=== PATIENT | male | born 2000 | race Caucasian/White ===

== ENCOUNTER 2024-03-14 07:23 | Emergency (ER) | payer OTHER, SELFPAY ==
[2024-03-14 07:31] VITALS: BP 132/81; PULSE 64; RESP 18; TEMP 36.6; O2SAT 97; BMI 21.9
--- NOTE | 2024-03-14 07:35 | CT_ITS ---
WS: [id number] CT ABDOMEN AND PELVIS WITH CONTRAST HISTORY: upper abdominal pain TECHNIQUE: Imaging performed of the abdomen and pelvis with IV contrast. Single phase imaging of the abdomen. Coronal and sagittal reformats are submitted. All CT scans at [facility] use at [address] one of these dose optimization techniques: automated exposure control; mA and/or kV adjustment per patient size (includes targeted exams where dose is matched to clinical indication); or iterative re construction. IV CONTRAST: Omnipaque 350; 100 mL IV. Oral contrast: No DLP: 345.08 mGy.cm COMPARISON: None available. Lower thorax: Lung bases are clear. Heart is normal size. No hiatal hernia. Liver/biliary system: Normal size with no intrahepatic dilatation. Gallbladder: Normal. No gallstones or wall thickening. No pericholecystic fluid. Pancreas: Normal size pancreas and pancreatic duct. No adjacent inflammation. Spleen: Normal size spleen. No mass or infarct. Adrenal glands: Normal. Right kidney: Normal. Left kidney: Normal. Aorta: Normal. Lymphadenopathy: Numerous small hyperemic lymph nodes in the central mesentery and RIGHT lower quadra nt with the largest measuring up to 10 mm in short axis diameter. Free fluid: None. GI tract: Unremarkable. Normal appendix. Abdominal wall: Unremarkable abdominal wall. No hernia. Pelvis: No free fluid or adenopathy within the pelvis. Bones: Unremarkable. CT/CT abdomen pelvis w con* [id number] IMPRESSION: 1. No GI tract obstruction. 2. Normal appendix. 3. Numerous small hyperemic lymph nodes in the central mesentery and RIGHT low er quadrant. Most consistent with mesenteric adenitis.
--- NOTE | 2024-03-14 07:35 | ED_ITS ---
HPI - Abdominal Pain 2 General: Chief Complaint: Abdominal Pain Stated Complaint: abd pain Time Seen by Provider: 03/14/24 07:30 History of Present Illness: 23-year-old man who presents the emergen cy room with abdominal pain. He says it has been fairly severe for about 5 days now. He describes intermittent cramping in his mid upper abdomen. He had some nausea but no vomiting. He has had some intermittent diarrhea. He says sometimes movement makes it worse. He has been taking omeprazole for some time for stomach acid he says. He has been being treated at a local clinic for possible irritable bowel syndrome for a couple of months. No fevers. He says he does have concern for his gallbladder because all of his family has had their gallbladder out. He is not currently having any pain. Review of Systems 2 Narrative: Constitutional symptoms: Negative except as documented in HPI. Skin symptoms: Negative except as documented in HPI. Eye symptoms: Negative except as documented in HPI. ENMT symptoms: Negative except as documented in HPI. Respiratory symptoms: Negative except as documented in HPI. Cardiovascular symptoms: Negative except as documented in HPI. Gastrointestinal symptoms: Negative except as documented in HPI. Genitourinary symptoms: Negative except as documented in HPI. Musculoskeletal symptoms: Negative except as documented in HPI. Neurologic symptoms: Negative except as documented in HPI. Psychiatric symptoms: Negative except as documented in HPI. Endocrine symptoms: Negative except as documented in HPI. Physical Exam 2 Narrative: EXAM NARRATIVE: General: Alert, no acute distress. Skin: Warm, dry. Head: Normocephalic, atraumatic. Neck: Supple, trachea midline. Eye: Extraocular movements are intact. Ears, nose, mouth and throat: mucosa moist. Cardiovascular: Regular, Normal peripheral perfusion. Respiratory: Lungs are clear to auscultation, respirations are non-labored, breath sounds are equal, Symmetrical chest wall expansion. Gastrointestinal: Soft, Nontender, Non distended Musculoskeletal: Normal ROM, no deformity. Neurological: Alert and oriented, No focal neurological deficit observed. Psychiatric: Cooperative, appropriate mood & affect. Course 2 Vital Signs: Vital signs: Vital Signs Temperature 97.8 F 03/14/24 07:31 Pulse Rate 64 03/14/24 07:31 Respiratory Rate 18 03/14/24 07:31 Blood Pressure 134/82 03/14/24 09:05 Pulse Oximetry 99 03/14/24 09:05 Oxygen Delivery Me thod Room Air 03/14/24 07:31 MDM - Abdominal Pain Medical Decision Making Medical decision making: Differential diagnosis including but not limited to and based on the above HPI, review of systems and physical exam: Concern for pancreatitis, gastritis, gallbladder disease, inflammatory bowel. Lab work and CT were ordered to evaluate. Orders placed to evaluate differential diagnosis based on the above differential, HPI and physical exam Lab Review: Laboratory results were reviewed and interpreted by myself the emergency room physician. Lab work shows mild leukocytosis. No anemia. No renal failure. Liver enzymes and lipase are normal. CT of the abdomen pelvis with contrast: No appendicitis. No cholecystitis. No evidence of pancreatitis. No obstructions. Patient does have some small hyperemic lymph nodes that could be consistent with mesenteric adenitis. However patient's presentation is not consistent with this. He is complaining of upper abdominal pain not right lower quadrant pain. This was reviewed and interpreted by myself the emergency room physician. I also reviewed the radiology report. I reviewed the patient's medical record. Reexamination: Patient remained stable. No increased work of breathing. He is having no pain here today. Discussed the findings with him and he expresses understanding. Assessment and plan: Abdominal pain - Discharged home - Discussed findings and plan with patient. Answered any questions. - All laboratory values were reviewed and interpreted personally by myself, the ER physician - All imaging was reviewed and interpreted personally by myself, the ER physician. - Evaluation and treatment of this problem were appropriate in the emergency setting Lab Data 03/14/24 07:45 03/14/24 07:45 Labs/Radiology: Radiology Impressions Abdomen/Pelvis CT 03/14/24 07:35 IMPRESSION: 1. No GI tract obstruction. 2. Normal appendix. 3. Numerous small hyperemic lymph nodes in the central mesentery and RIGHT lower quadrant. Most consistent with mesenteric adenitis. Laboratory Results WBC 12.10 10^3/uL (3.29-11.43) H 03/14/24 07:45 RBC 5.03 10^6/uL (3.85-5.65) 03/14/24 07:45 Hgb 15.10 g/dL (11.27-16.99) 03/14/24 07:45 Hct 43.9 % (37-53) 03/14/24 07:45 MCV 87.3 fl (82-101) 03/14/24 07:45 MCH 30.0 pg (27-33) 03/14/24 07:45 MCHC 34.4 g/dL (30-55) 03/14/24 07:45 RDW 12.0 % (12.1-15.1) L 03/14/24 07:45 Plt Count 273 10^3/cmm (157-399) 03/14/24 07:45 MPV 9.5 fL (7.4-10.4) 03/14/24 07:45 Neut % (Auto) 71.1 % 03/14/24 07:45 Lymph % (Auto) 15.4 % 03/14/24 07:45 [place] % (Auto) 9.8 % 03/14/24 07:45 Eos % (Auto) 2.4 % 03/14/24 07:45 Baso % (Auto) 0.8 % 03/14/24 07:45 Neut # (Auto) 8.60 10^3/uL (1.8-7.7) H 03/14/24 07:45 Lymph # (Auto) 1.9 10^3/uL (0.8-4.8) 03/14/24 07:45 [place] # (Auto) 1.2 10^3/uL (0.2-0.9) H 03/14/24 07:45 Eos # (Auto) 0.3 10^3/uL (0.0-0.8) 03/14/24 07:45 Baso # (Auto) 0.1 10^3/uL (0.0-0.1) 03/14/24 07:45 Nucleated RBC % (auto) 0 % 03/14/24 07:45 Nucleated RBCs # 0.0 /100WBC 03/14/24 07:45 Sodium 140 mmol/L (136-145) 03/14/24 07:45 Potassium 4.3 mmol/L (3.5-5.1) 03/14/24 07:45 Chloride 105 mmol/L (98-107) 03/14/24 07:45 Carbon Dioxide 22 mmol/L (22-29) 03/14/24 07:45 Anion Gap 17.3 (5-19) 03/14/24 07:45 BUN 18 mg/dL (6-20) 03/14/24 07:45 Creatinine 0.9 mg/dL (0.7-1.2) 03/14/24 07:45 GFR Calculation 104.6 mL/min (90-130) 03/14/24 07:45 Glucose 102 mg/dL (65-115) 03/14/24 07:45 Calculated Osmolality 292 mOsm/kg (285-295) 03/14/24 07:45 Calcium 9.3 mg/dL (8.5-10.5) 03/14/24 07:45 Total Bilirubin 0.3 mg/dL (0.15-1.2) 03/14/24 07:45 AST 27 U/L (0-40) 03/14/24 07:45 ALT 31 U/L (0-41) 03/14/24 07:45 Alkaline Phosphatase 92 U/L (40-130) 03/14/24 07:45 C-Reactive Protein 16.6 mg/L (0.0-4.9) H 03/14/24 07:45 Total Protein 7.4 g/dL (6.6-8.7) 03/14/24 07:45 Albumin 4.3 g/dL (3.5-5.2) 03/14/24 07:45 Globulin 3.1 g/dL (1.3-4.6) 03/14/24 07:45 Lipase 17 U/L (13-60) 03/14/24 07:45 All radiology interpretation(s) finalized by discharge Discharge Plan Discharge Patient Disposition: Home Clinical Impression: Abdominal pain Condition: Stable Prescriptions: New Carafate 1 gram tablet 1 g PO TID 28 Days Qty: 84 0RF Rx Instructions: with meals famotidine 40 mg tablet 40 mg PO DAILY Qty: 30 0RF ondansetron 8 mg tablet,disintegrating 8 mg PO .q6 PRN (Reason: nausea and vomiting) Qty: 14 0RF No Action hydrocortisone 1 % cream 1 applic topical BID PRN (Reason: Skin Irritation) omeprazole 20 mg capsule,delayed release(DR/EC) 20 mg PO DAILY mupirocin 2 % ointment 1 applic topical BID PRN (Reason: Skin Irritation) Discharge Orders: Discharge ED (Routine); Ordered 03/14/24 Ordered By: Beatrice Moser Discharge Diet: Advance as tolerated Discharge Activity: Increase activity as tolerated Patient Instructions: Abdominal Pain (ED) Activity Restrictions/Additional Instructions: Thank you for choosing [facility] for your healthcare needs today. Please realize this is an emergency room and that we are providing you with a medical screening exam and this may not be complete and all inclusive of all the testing and or work up that you may need to determine your ailment or severity of your illness. You have been screened and evaluated and felt safe for discharge. Health conditions do change or evolve sometimes and as such it is important that you follow up with your Primary Doctor to be re checked, 3-5 days is a general good time frame for follow up. 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
[2024-03-14 07:38] VITALS: BP 132/81; O2SAT 96
[2024-03-14 07:55] LABS: Basophils # 0.1 10^3/uL (0.0-0.1); Basophils % 0.8 %; Eosinophils # 0.3 10^3/uL (0.0-0.8); Eosinophils % 2.4 %; Hematocrit 43.9 % (37-53); Lymphocytes # 1.9 10^3/uL (0.8-4.8); Lymphocytes % 15.4 %; Mean Corpuscular HGB Conc 34.4 g/dL (30-55); Mean Corpuscular Volume 87.3 fl (82-101); Mean Platelet Volume 9.5 fL (7.4-10.4); Monocytes # 1.2 10^3/uL (0.2-0.9); Monocytes % 9.8 %; Neutrophils % 71.1 %; Nucleated Red Blood Cells % 0 %; Platelet Count 273 10^3/cmm (157-399); Red Blood Count 5.03 10^6/uL (3.85-5.65)
[2024-03-14 08:05] VITALS: BP 123/53; O2SAT 99
[2024-03-14 08:12] LABS: Alanine Aminotransferase 31 U/L (0-41); Albumin Level 4.3 g/dL (3.5-5.2); Alkaline Phosphatase 92 U/L (40-130); Aspartate Amino Transferase 27 U/L (0-40); Blood Urea Nitrogen 18 mg/dL (6-20); C Reactive Protein 16.6 mg/L (0.0-4.9); Calcium 9.3 mg/dL (8.5-10.5); Carbon Dioxide 22 mmol/L (22-29); Chloride 105 mmol/L (98-107); Creatinine Clr Calc Pharmacy 117.4716; Globulin 3.1 g/dL (1.3-4.6); Glomerular Filtration Rate 104.6 mL/min (90-130); Glucose 102 mg/dL (65-115); Lipase 17 U/L (13-60); Osmolality Calculated 292 mOsm/kg (285-295); Sodium 140 mmol/L (136-145); Total Bilirubin 0.3 mg/dL (0.15-1.2); Total Protein 7.4 g/dL (6.6-8.7)
[2024-03-14 08:15] LABS: Anion Gap 17.3 (5-19); Potassium 4.3 mmol/L (3.5-5.1)
[2024-03-14 08:30] VITALS: BP 123/53
[2024-03-14] MEDS: iohexol 350 mg/mL 500 mL Btl (per mL) IV (08:34)
[2024-03-14 09:05] VITALS: BP 134/82; O2SAT 99
== END 2024-03-14 09:28 | disposition home or self-care (01) ==
PROVIDERS: Emergency Provider Emergency Medicine
DX: R10.10 Upper abdominal pain, unspecified (principal); D72.829 Elevated white blood cell count, unspecified
CPT/HCPCS: 74177; 80053; 83690; 85025; 86140; 99285; Q9967